=== PATIENT | female | born 1995 | race Caucasian/White ===

== ENCOUNTER 2021-11-09 06:05 | Emergency (ER) | payer BC ==
[~2021-11-09] VITALS: Ht 170.2 cm; Wt 65.9 kg
[2021-11-09 06:24] VITALS: BP 106/73
[2021-11-09 06:45] LABS: CLARITY,URINE CLOUDY (Clear); GLUCOSE, URINE NEGATIVE (Neg); KETONES,URINE NEGATIVE (Neg); LEUKOCYTE ESTERASE ,URINE MODERATE (Neg); NITRITES, URINE NEGATIVE (Neg); OCCULT BLOOD,URINE LARGE (Neg); PROTEIN,URINE 30 mg/dl (Neg); UROBILINOGEN,URINE 0.2 E.U/dL (0.2-1.0)
[2021-11-09 06:46] LABS: COLOR,URINE STRAW (Yellow); UA COLLECTION TYPE CLN CATCH MIDSTREAM
[2021-11-09 06:51] LABS: URINE HCG NEGATIVE (NEG)
[2021-11-09 06:57] LABS: BACTERIA,URINE 2+ /HPF (Neg); MUCUS STRANDS NONE SEEN /LPF (Neg); RBC,URINE 50-100 /HPF (0-2); SQUAMOUS EPITHELIAL CELL,UR NONE SEEN /LPF (FEW); WBC CLUMPS,URINE MANY /HPF (NEGATIVE); WBC,URINE TNTC /HPF (0-4)
[2021-11-09] MEDS ORDERED: SULF1TAB49 PO (07:08)
[2021-11-09] MEDS ORDERED: PHEN-786 PO (07:08)
== END 2021-11-09 07:40 | disposition home or self-care (01) ==
LOC: ER 06:05
DX: N39.0 Urinary tract infection, site not specified (principal); N10 Acute pyelonephritis; Z79.899 Other long term (current) drug therapy
CPT/HCPCS: 81001; 81025; 87077; 87088; 87186; 99283